=== PATIENT | female | born 1985 | race Caucasian/White ===

== ENCOUNTER 2017-03-10 11:26 | Emergency (ER) | payer OTHER ==
[~2017-03-10] VITALS: Ht 170.2 cm; Wt 56.7 kg
[2017-03-10 11:26] VITALS: BP 120/82
[~2017-03-10 11:26] MED LIST: ACETAMINOPHEN-1 EAC1 PO; CLEOCIN HCL150 MG PO; CLEOCIN HCL300 MG PO; ERYTHROMYCIN500 MG PO; FLEXERIL PO; HYDROCODONE-AP1 EAC6 PO; IBUPROFEN 800800 M1 PO; MEDROLDOSEPACK PO; NAPROSYN500 MG PO; NORCO 5-325 TA1 EACH PO; VENTOLIN HFA 1818 GM INH; ZANAFLEX4 MG PO
[2017-03-10] MEDS ORDERED: MOBIC15 MG PO (11:53)
[2017-03-10] MEDS ORDERED: HYDROCODONE-AP1 EAC6 PO (11:53)
== END 2017-03-10 12:31 | disposition home or self-care (01) ==
LOC: ER 11:26
DX: K02.9 Dental caries, unspecified (principal); M54.30 Sciatica, unspecified side; F17.210 Nicotine dependence, cigarettes, uncomplicated; Z88.0 Allergy status to penicillin; Z88.5 Allergy status to narcotic agent; Z91.010 Allergy to peanuts; Z88.6 Allergy status to analgesic agent

== ENCOUNTER 2017-05-28 17:52 | Emergency (ER) | payer OTHER ==
[~2017-05-28] VITALS: Ht 167.6 cm; Wt 56.7 kg
[~2017-05-28 17:52] MED LIST changes: +MOBIC15 MG PO
[2017-05-28] MEDS ORDERED: ACETAMINOPHEN-1 EAC1 PO (19:19)
[2017-05-28] MEDS ORDERED: IBUPROFEN 600600 M1 PO (19:19)
[2017-05-28 19:30] VITALS: BP 101/72
== END 2017-05-28 19:30 | disposition home or self-care (01) ==
LOC: ER 17:52
DX: S40.011A Contusion of right shoulder, initial encounter (principal); S30.0XXA Contusion of lower back and pelvis, initial encounter; F17.210 Nicotine dependence, cigarettes, uncomplicated; Z88.6 Allergy status to analgesic agent; Z91.010 Allergy to peanuts; Z88.0 Allergy status to penicillin; W11.XXXA Fall on and from ladder, initial encounter; Y93.89 Activity, other specified; Y92.89 Other specified places as the place of occurrence of the external cause; Y99.8 Other external cause status

== ENCOUNTER 2019-12-04 13:37 | Emergency (ER) | payer OTHER ==
[~2019-12-04] VITALS: Ht 170.2 cm; Wt 61.2 kg
[~2019-12-04 13:37] MED LIST changes: +IBUPROFEN 600600 M1 PO
[2019-12-04] MEDS ORDERED: NORCO 10-325 T1 EACH PO (15:52)
[2019-12-04] MEDS ORDERED: PROAIR HFA8.5 GM INH (15:52)
[2019-12-04 16:46] VITALS: BP 100/58
== END 2019-12-04 16:46 | disposition home or self-care (01) ==
LOC: ER 13:37
DX: J40 Bronchitis, not specified as acute or chronic (principal); F17.210 Nicotine dependence, cigarettes, uncomplicated; Z79.1 Long term (current) use of non-steroidal anti-inflammatories (NSAID); Z79.891 Long term (current) use of opiate analgesic; Z79.899 Other long term (current) drug therapy; Z88.0 Allergy status to penicillin; Z91.010 Allergy to peanuts; Z88.5 Allergy status to narcotic agent; Z88.8 Allergy status to other drugs, medicaments and biological substances; Z20.828 Contact with and (suspected) exposure to other viral communicable diseases

== ENCOUNTER 2020-04-17 08:01 | Emergency (ER) | payer OTHER ==
[~2020-04-17] VITALS: Ht 170.2 cm; Wt 72.6 kg
[~2020-04-17 08:01] MED LIST changes: +NORCO 10-325 T1 EACH PO; +PROAIR HFA8.5 GM INH
[2020-04-17 08:04] VITALS: BP 108/73
[2020-04-17] MEDS ORDERED: KEFLEX500 M1 PO (08:52)
[2020-04-17] MEDS ORDERED: MOBIC15 MG PO (08:52)
== END 2020-04-17 09:00 | disposition home or self-care (01) ==
LOC: ER 08:01
DX: N76.4 Abscess of vulva (principal); F17.210 Nicotine dependence, cigarettes, uncomplicated; Z79.899 Other long term (current) drug therapy; Z79.1 Long term (current) use of non-steroidal anti-inflammatories (NSAID); Z88.0 Allergy status to penicillin; Z88.8 Allergy status to other drugs, medicaments and biological substances; Z91.010 Allergy to peanuts

== ENCOUNTER 2020-11-18 09:37 | Emergency (ER) | payer OTHER ==
[~2020-11-18] VITALS: Ht 170.2 cm; Wt 79.4 kg
[~2020-11-18 09:37] MED LIST changes: +KEFLEX500 M1 PO
[2020-11-18] MEDS ORDERED: PREDNISONE 20 M20 MG PO (10:19)
[2020-11-18] MEDS ORDERED: PROAIR HFA8.5 GM INH (10:19)
[2020-11-18] MEDS ORDERED: TESSALON PERLE100 M1 PO (10:19)
[2020-11-18 11:17] VITALS: BP 123/79
== END 2020-11-18 11:17 | disposition home or self-care (01) ==
LOC: ER 09:37
DX: J06.9 Acute upper respiratory infection, unspecified (principal); J04.0 Acute laryngitis; F17.210 Nicotine dependence, cigarettes, uncomplicated; Z88.0 Allergy status to penicillin; Z88.1 Allergy status to other antibiotic agents; Z91.010 Allergy to peanuts

== ENCOUNTER 2021-01-05 07:34 | Emergency (ER) | payer OTHER ==
[~2021-01-05] VITALS: Ht 170.2 cm; Wt 68.0 kg
[~2021-01-05 07:34] MED LIST changes: +PREDNISONE 20 M20 MG PO; +TESSALON PERLE100 M1 PO
[2021-01-05 09:55] VITALS: BP 107/67
== END 2021-01-05 09:55 | disposition home or self-care (01) ==
LOC: ER 07:34
DX: S20.211A Contusion of right front wall of thorax, initial encounter (principal); F41.9 Anxiety disorder, unspecified; F17.210 Nicotine dependence, cigarettes, uncomplicated; Z79.51 Long term (current) use of inhaled steroids; Z79.891 Long term (current) use of opiate analgesic; Z79.1 Long term (current) use of non-steroidal anti-inflammatories (NSAID); Z79.899 Other long term (current) drug therapy; Z88.0 Allergy status to penicillin; Z88.8 Allergy status to other drugs, medicaments and biological substances; Z88.6 Allergy status to analgesic agent; Z91.010 Allergy to peanuts; V87.7XXA Person injured in collision between other specified motor vehicles (traffic), initial encounter; Y93.89 Activity, other specified; Y92.89 Other specified places as the place of occurrence of the external cause; Y99.8 Other external cause status